=== PATIENT | male | born 1990 | race Caucasian/White ===

== ENCOUNTER 2022-04-14 15:50 | Emergency (ER) | payer OTHER ==
[~2022-04-14] VITALS: Ht 175.3 cm; Wt 96.6 kg
[2022-04-14] MEDS ORDERED: LEVOTHYROXINE25 MCG PO (16:51)
== END 2022-04-14 19:10 | disposition home or self-care (01) ==
LOC: ER 15:50
DX: R42 Dizziness and giddiness (principal); E03.9 Hypothyroidism, unspecified

== ENCOUNTER 2023-04-13 23:41 | Emergency (ER) | payer OTHER ==
[~2023-04-13] VITALS: Ht 175.3 cm; Wt 99.8 kg
[~2023-04-13 23:41] MED LIST: LEVOTHYROXINE25 MCG PO
[2023-04-13] MEDS ORDERED: [UNRECOGNIZED DRUG - OTHER] (23:48)
[2023-04-13] MEDS ORDERED: ATORVASTATIN CA10 MG PO (23:48)
[2023-04-14] MEDS ORDERED: TOPROL XL25 M1 PO (02:36)
== END 2023-04-14 02:41 | disposition home or self-care (01) ==
LOC: ER 23:41
DX: R00.0 Tachycardia, unspecified (principal); I10 Essential (primary) hypertension; E03.9 Hypothyroidism, unspecified